=== PATIENT | female | born 1980 | race African-American/Black ===

== ENCOUNTER → 2023-11-23 | Outpatient (CLI) | payer MEDICAID ==
[~2023-11-23] MED LIST: ATEN-60
[2023-11-23 12:21] LABS: Erythrocyte Sedimentation Rate 10 mm/hr (0-20)
[2023-11-24 07:06] LABS: Complement C3 119 mg/dL (82-167)
[2023-11-24 10:07] LABS: Anti-dsDNA Antibody 1 IU/mL (0-9)
== END | disposition home or self-care (01) ==
LOC: LAB 11:07
PROVIDERS: ATTEND Internal Medicine Rheumatology
DX: M32.9 Systemic lupus erythematosus, unspecified (principal)
CPT/HCPCS: 36415; 85652; 86141; 86160; 86225